=== PATIENT | male | born 1985 | race Caucasian/White ===

== ENCOUNTER → 2020-08-08 09:46 | Outpatient (CLI) | payer OTHER, SELFPAY ==
--- NOTE | ~2020-08-08 | US_ITS ---
EXAMINATION: US right upper quadrant EXAM DATE: 08/08/2020 10:09 INDICATION: R74.8 - Abnormal levels of other serum enzymes. TECHNIQUE: Multiple grayscale and Doppler images of the abdomen right upper quadrant were obtained (b y a technologist who performed the scan) and subsequently reviewed. There is no prior study for demetrius lovell. FINDINGS: The pancreatic head and body are normal in appearance. The pancreatic tail is not visualized. There is echogenic liver parenchyma, hepatic steatosis. There are no focal liver lesions identified. Th ere is no evidence of intrahepatic biliary duct dilation. Portal venous flow was seen in the hepatop edal, normal direction and has normal Doppler waveform. No right-sided hydronephrosis. Common bile duct measures 7 mm, which is minimally dilated. The gallbladder wall is normal in thickne ss, with expected amount of distention. No sonographic evidence of pericholecystic fluid. There is no cholelithiases. Technologist performing exam reports patient did not demonstrate sonographic Smita y's sign. Please note that this sign is less reliable in patients who have received pain medication. IMPRESSION: 1. Hepatic steatosis. 2. Minimally dilated common bile duct, probably not clinically significant in the absence of choleli thiasis or elevated bilirubin. Reviewed, dictated and finalized at location A. SYSTEMS SAFETY ENGINEER IMPRESSION: 1. Hepatic steatosis. 2. Minimally dilated common bile duct, probably not clinically significant in the absence of cholelithiasis or elevated bilirubin.
== END ==
PROVIDERS: PCP Physician Assistant; Visit Provider Physician Assistant
DX: R74.8 Abnormal levels of other serum enzymes (principal); K76.0 Fatty (change of) liver, not elsewhere classified
CPT/HCPCS: 76705

== ENCOUNTER → 2020-10-17 10:47 | Outpatient (CLI) | payer OTHER, SELFPAY ==
--- NOTE | ~2020-10-17 | XR_ITS ---
EXAMINATION: XR chest 2V DATE: 10/17/2020 11:15 INDICATION: Shortness of breath. COVID-19 pneumonia. TECHNIQUE: Frontal and lateral views of the chest were obtained. COMPARISON: None. FINDINGS: There are patchy airspace opacities in all lung zones bilaterally with a peripheral predomi nance, right worse than left. No pleural effusion or pneumothorax. The heart size is normal. IMPRESSION: 1. Diffuse lung disease, consistent with COVID-19 pneumonia. Reviewed, dictated and finalized at location A. MECHANIC
== END ==
PROVIDERS: PCP Internal Medicine; Visit Provider Physician Assistant
DX: U07.1 COVID-19 (principal)
CPT/HCPCS: 71046

== ENCOUNTER 2020-10-18 09:52 | Outpatient (RCR) | payer OTHER, SELFPAY ==
[2020-10-18] MEDS: diphenhydrAMINE HCl CAP 25 MG CAPSULE PO (10:38)
[2020-10-18] MEDS: FAMOTIDINE 20 MG TABLET PO (10:39)
[2020-10-18] MEDS: ACETAMINOPHEN 325 MG TABLET 650 MG PO (10:39)
[2020-10-18 10:50] VITALS: BP 121/84; PULSE 94; RESP 18; TEMP 35.7; O2SAT 97
--- NOTE | 2020-10-18 12:01 | PC.NURSE ---
Patient given discharge instructions on covid 19 antibody treatment and given facts sheet on covid 19 and Bamlinivimab with understanding stated to instruction.
[2020-10-18 12:47] VITALS: BP 125/79; O2SAT 97
--- NOTE | 2020-10-21 12:34 | PC.NURSE ---
Patient states he feels better and no further symptoms.
== END 2020-10-21 13:32 ==
LOC: AMCINF 09:52
PROVIDERS: PCP Internal Medicine; Visit Provider Physician Assistant
DX: Z23 Encounter for immunization (principal); U07.1 COVID-19; E11.9 Type 2 diabetes mellitus without complications
CPT/HCPCS: A9270; J7050; M0239; Q0239

== ENCOUNTER → 2021-09-04 07:47 | Outpatient (CLI) | payer OTHER, SELFPAY ==
--- NOTE | ~2021-09-04 | US_ITS ---
EXAMINATION: US right upper quadrant EXAM DATE: 09/04/2021 08:08 INDICATION: Elevated liver enzymes level. TECHNIQUE: Multiple grayscale and Doppler images of the abdomen right upper quadrant were obtained (b y a technologist who performed the scan) and subsequently reviewed. Comparison is made to prior exami nation from 08/08/2020. FINDINGS: The pancreatic head and body are normal in appearance. The pancreatic tail is not visualized. There is echogenic liver parenchyma, hepatic steatosis. There are no focal liver lesions identified. Th ere is no evidence of intrahepatic biliary duct dilation. Portal venous flow was seen in the hepatop edal, normal direction and has normal Doppler waveform. No right-sided hydronephrosis. Common bile duct measures 3 mm, which is normal. The gallbladder wall is normal in thickness, with ex pected amount of distention. No sonographic evidence of pericholecystic fluid. There is no cholelit hiases. Technologist performing exam reports patient did not demonstrate sonographic Gottlieb's sign. Please note that this sign is less reliable in patients who have received pain medication. IMPRESSION: 1. Hepatic steatosis. Reviewed, dictated and finalized at location B. CTION PREVENTIONIST IMPRESSION: 1. Hepatic steatosis.
== END ==
PROVIDERS: PCP Physician Assistant; Visit Provider Internal Medicine Gastroenterology
DX: R74.8 Abnormal levels of other serum enzymes (principal); K76.0 Fatty (change of) liver, not elsewhere classified
CPT/HCPCS: 76705

== ENCOUNTER 2023-05-20 10:33 | Outpatient (CLI) | payer OTHER, SELFPAY ==
--- NOTE | ~2023-05-20 | US_ITS ---
EXAMINATION: US venous doppler [facility] DATE: 05/20/2023 11:31 INDICATION: Left lower limb pain and swelling TECHNIQUE: Linder scale images without and with compression and Doppler images of the left lower extrem ity veins were obtained. COMPARISON: None FINDINGS: The left common femoral vein, profunda femoral vein, femoral vein, popliteal vein, peroneal trunk, posterior tibial veins, and greater saphenous vein are patent. IMPRESSION: 1. Patent left lower extremity veins. No evidence of deep venous thrombosis. Reviewed, dictated and finalized at location L.
== END 2023-05-20 10:34 | disposition home or self-care (01) ==
PROVIDERS: PCP Physician Assistant; Visit Provider Physician Assistant
DX: M79.605 Pain in left leg (principal); M79.89 Other specified soft tissue disorders
CPT/HCPCS: 93971